=== PATIENT | female | born 1935 | race African-American/Black ===

== ENCOUNTER 2016-05-18 13:15 | Day surgery (SDC) | payer MEDICARE, BC ==
[2016-05-13 12:48] LABS: BASOPHILS 0.5 %; BASOPHILS ABSOLUTE 0.02 10/3/uL (0.0-0.16); EOSINOPHILS 2.5 %; EOSINOPHILS ABSOLUTE 0.11 10/3/uL (0.0-0.53); HEMOGLOBIN 10.9 g/dL (12.0-16.0); LYMPHOCYTES 35.5 %; LYMPHOCYTES ABSOLUTE 1.56 10/3/uL (0.67-4.30); MEAN CORPUSCULAR VOLUME 92.2 fL (80-100); MEAN PLATELET VOLUME 9.7 fL (9.2-13.0); MONOCYTES 8.6 %; MONOCYTES ABSOLUTE 0.38 10/3/uL (0.21-1.20); NEUTROPHILS 52.9 %; NEUTROPHILS ABSOLUTE 2.33 10/3/uL (2.02-8.40); PLATELET COUNT 184 10/3/uL (150-400); RBC DISTRIBUTION WIDTH 13.6 % (12.0-16.0); RED CELL COUNT 3.58 10/6/uL (4.0-5.6); WHITE BLOOD CELLS 4.4 10/3/uL (4.5-10.5)
[2016-05-13 12:49] LABS: MANUAL DIFF NO %; MEAN CORPUSCULAR HEMOGLOB 30.4 pg (26.0-34.0)
[2016-05-13 13:05] LABS: BUN (BLOOD UREA NITROGEN) 12 MG/DL (6-23); CALCIUM, SERUM 8.9 MG/DL (8.5-10.4); CHLORIDE, SERUM 105 MMOL/L (96-112); CO2 (CARBON DIOXIDE) 29 MMOL/L (24-34); CREATININE 0.81 MG/DL (0.55-1.02); GFR AFRICAN AMERICAN 80 ML/MIN (>=60); GFR NON AFRICAN AMERICAN 69 ML/MIN (>=60); POTASSIUM, SERUM 3.8 MMOL/L (3.5-5.3); SODIUM, SERUM 143 MMOL/L (135-148)
[2016-05-13 13:06] LABS: GLUCOSE, SERUM 81 MG/DL (60-99)
--- NOTE | ~2016-05-18 | OP ---
Record Of Operation [facility] [address] [place]. [address] NAME: AUGUST MEZA : 35 STATUS : REG [facility] PAT#: [id number] AGE: 80 ADM/REG DATE : 05/18/16 MR#: [id number] REPORT SERV DATE: 05/19/16 DICTATED BY: RNEE CUNHA II DATE: 05/19/16 REPORT STATUS : Draft TRANSCRIBED BY: ARMIN DATE: 05/19/16 DATE OF PROCEDURE: 05/18/2016 PREOPERATIVE DIAGNOSES: 1. Peripheral vascular disease. 2. Rest pain in the left foot. POSTOPERATIVE DIAGNOSES: 1. Peripheral vascular disease. 2. Rest pain in the left foot. PROCEDURE: 1. Ultrasound-guided sheath insertion into right common femoral artery. 2. Abdominal aortogram. 3. Left leg angiogram. 4. Selective catheterization of left anterior tibial artery. 5. Percutaneous angioplasty of left anterior tibial artery. ANESTHESIA: Local with MAC. IV FLUIDS: 300 mL. CONTRAST: 41 mL. ESTIMATED BLOOD LOSS: 10 mL. DETAILS: The patient was taken to the operating room and placed in supine position on the table. Both groins were prepped and draped. I used ultrasound to identify the right common femoral artery. I performed a puncture and placed a 5-Dutch sheath. Abdominal aortogram was performed, demonstrating a patent abdominal aorta. Both renal vessels were patent. There was no aneurysm, dissection, or significant stenosis seen. We then passed a catheter into the left common femoral. Left leg angiogram demonstrated calcified common and femoral vessels. However, the common, superficial femoral, and profunda were all patent down into the popliteal, which was also patent with no significant stenosis seen. Below the knee, severe tibial disease was noted. The posterior tibial and the peroneal were both occluded just beyond their origins. The anterior tibial was patent, but there were multiple areas of stenosis of more than 70% along the course of the anterior tibial, it occluded distally. There was good collateralization seen to the dorsalis pedis. Severe small vessel disease was noted within the entire foot with very little flow demonstrated distally. We then heparinized the patient. We passed a sheath over the bifurcation. I passed a catheter into the origin of the anterior tibial and performed an angiogram that again demonstrated calcification with several areas of stenosis throughout the course of the anterior tibial of more than 70% and then distal occlusion. We then passed a wire down into the distal aspect, and we angioplastied the anterior tibial using a 2.5 mm balloon, three inflations were performed. Completion angiogram demonstrated a good result, now this vessel being widely patent throughout the proximal two-thirds of the vessel, still with an area of distal Record Of Operation [place] [address] [place]. [address] NAME: AUGUST MEZA : 35 STATUS : REG [facility] PAT#: [id number] AGE: 80 ADM/REG DATE : 05/18/16 MR#: [id number] REPORT SERV DATE: 05/19/16 DICTATED BY: RENE CUNHA II DATE: 05/19/16 REPORT STATUS : Draft TRANSCRIBED BY: ARMIN DATE: 05/19/16 occlusion. However, there was still a quick reconstitution of the dorsalis pedis. We attempted to pass a wire through the occlusion, but we encountered a small perforation and decided for no further attempts. Completion angiogram at this point again demonstrated improved flow. There still was evidence of severe small vessel disease distally, but improved flow was noted down into the forefoot through collaterals from the distal anterior tibial. We then removed all the wires and catheters and closed percutaneously. At the end of the procedure, the patient was stable and she tolerated it well. IRENE/ARMIN Rene Cunha II, M.D. / [id number] CC: Taylor Ellison II, M.D.
[~2016-05-18 13:15] MED LIST: ACET500CAP PO; ALEVE220 MG PO; AMIT25 PO; APRES50 PO; ASAB; ASAB PO; ASPIRIN 81 MG PO; AT25 PO; BENTYL10 PO; BIST PO; C25; C25 PO; CALTRA600D PO; COREG3 PO; COREG6 PO; DCN100 PO; DIABET1.25 PO; DOX10 PO; FERRITIN; FISH OIL PO; FLEX PO; FOLIC PO; FOSAMAX70 MG PO; GABARONE300 MG PO; GLUCPH PO; HAIR, SKIN & N1 EAC1 PO; HALF81 PO; K-PHO1 OR; K-PHO1 PO; LEVOTHYROXIN88 MCG PO; LEXAPRO5 MG PO; LIPITOR40 PO; LORTAB 5 PO; MEGA RED PO; MOBIC15 MG PO; MTX2.5 PO; MULTIPLE VIT PO; NEUR100 PO; NEUR300 PO; NEUR400 PO; NITROSTAT0.4 MG SL; NORCO1 TA1 PO; NORV5 PO; P5 PO; PENNSAID 2% TOP; PLAQ200B PO; PLAVIX PO; POTASSIUM99 M3 PO; PRIN10 PO; PRIN20 PO; PROCRIT; PROCRIT IV; RAN500 PO; RELA5 PO; RESTASIS OPH; SALONPAS-HOT TOP; SYN1 PO; SYN125 PO; SYN88 PO; SYNTHROID137 MCG PO; TOPAMAX25 PO; TRICOR145 PO; TYLENOL PM PO; VESICARE5 PO; VITAMIN B-121000 MC1 SL; VITAMIN D1000 UNI1 PO; VITAMIN D2000 UNIT PO; VITAMIN D31000 UNIT PO; VOLT75 PO; VOLTXR100 PO; X25 PO; XANAX XR0.5 MG PO; XANAX1 MG PO; ZANTAC150 MG PO; ZESTRIL10 MG PO; ZESTRIL20 MG PO; ZOCOR20 PO; ZOCOR40 PO; [UNRECOGNIZED DRUG - CODE] PO; [UNRECOGNIZED DRUG - OTHER] PO; [UNRECOGNIZED DRUG - OTHER] PO; [UNRECOGNIZED DRUG - OTHER] PO; [UNRECOGNIZED DRUG - OTHER] PO; [UNRECOGNIZED DRUG - REMARK] PO
== END 2016-05-19 21:30 | disposition home or self-care (01) ==
LOC: SDC 13:15 → SSU1 19:13
PROVIDERS: Surgery
PROC: 047Q3ZZ Dilation of Left Anterior Tibial Artery, Percutaneous Approach (ICD-10-PCS; principal; 2016-05-18 14:45)
PROC: B400YZZ Plain Radiography of Abdominal Aorta using Other Contrast (ICD-10-PCS; 2016-05-18 14:45)
DX: I73.9 Peripheral vascular disease, unspecified (principal); I65.29 Occlusion and stenosis of unspecified carotid artery; I25.10 Atherosclerotic heart disease of native coronary artery without angina pectoris; I25.2 Old myocardial infarction; I12.9 Hypertensive chronic kidney disease with stage 1 through stage 4 chronic kidney disease, or unspecified chronic kidney disease; E11.22 Type 2 diabetes mellitus with diabetic chronic kidney disease; N18.9 Chronic kidney disease, unspecified; E78.00 Pure hypercholesterolemia, unspecified; E03.9 Hypothyroidism, unspecified; G47.33 Obstructive sleep apnea (adult) (pediatric); M19.90 Unspecified osteoarthritis, unspecified site; M41.9 Scoliosis, unspecified; G61.0 Guillain-Barre syndrome; Z85.850 Personal history of malignant neoplasm of thyroid; Z86.73 Personal history of transient ischemic attack (TIA), and cerebral infarction without residual deficits; Z87.891 Personal history of nicotine dependence; Z80.0 Family history of malignant neoplasm of digestive organs; Z88.5 Allergy status to narcotic agent; Z96.1 Presence of intraocular lens; Z96.651 Presence of right artificial knee joint; Z90.49 Acquired absence of other specified parts of digestive tract; Z90.710 Acquired absence of both cervix and uterus; Z98.51 Tubal ligation status; Z98.41 Cataract extraction status, right eye; Z98.42 Cataract extraction status, left eye; Z79.02 Long term (current) use of antithrombotics/antiplatelets; Z79.84 Long term (current) use of oral hypoglycemic drugs; Z79.82 Long term (current) use of aspirin; Z79.899 Other long term (current) drug therapy; Z98.890 Other specified postprocedural states
CPT/HCPCS: 37228; 75625; 75710; 80048; 82962; 85025; 93005; A9270-GY; C1725; C1760; C1769; C1887; C1894; J2270; J2370; J3010; Q9966